=== PATIENT | male | born 1980 | race Caucasian/White ===

== ENCOUNTER 2018-02-28 10:22 | Emergency (ER) | payer OTHER ==
[2018-02-28 10:27] VITALS: BP 132/77
--- NOTE | 2018-02-28 11:44 | ED Physician Documentation ---
PD HPI HEENT - Stated complaint Stated Complaint: R EYE PAIN - Chief complaint Chief Complaint: Heent - History obtained from History obtained from: Patient, Family - History of Present Illness Timing - onset: How many weeks ago (1) Timing - duration: Weeks (1) Timing - details: Gradual onset, Still present, Waxing and waning Location: Sinuses, Other (right eye fullness) Associated symptoms: Congestion, Cough. No: Fever Similar symptoms before: Has not had sx before Recently seen: Not recently seen - Additional information Additional information: 37-year-old male with the father of 2 children and who have been sick has become concerned about the possibility of pinkeye as his daughter is had some drainage from her right eye. He feels that there is some slight fullness to the right eye he does not have pain and he does not have drainage. He has had a bit of a cough and his daughters had a cough on and off for the past 5 months. Review of Systems Constitutional: denies: Fever Eyes: reports: Irritation. denies: Decreased vision Ears: denies: Ear pain Nose: reports: Rhinorrhea / runny nose, Congestion Throat: denies: Sore throat Cardiac: denies: Chest pain / pressure, Palpitations Respiratory: reports: Cough. denies: Dyspnea GI: denies: Vomiting PD PAST MEDICAL HISTORY - Past Medical History Past Medical History: No - Past Surgical History Past Surgical History: Yes General: Hiatal hernia repair HEENT: Tonsil/Adenoidectomy - Present Medications Home Medications: Ambulatory Orders Medication Instructions Recorded Confirmed Azithromycin [Zithromax] 250 mg PO DAILY #6 tablet 02/28/18 - Allergies Allergies/Adverse Reactions: Allergies Allergy/AdvReac Type Severity Reaction Status Date / Time No Known Drug Allergies Allergy Verified 02/28/18 10:27 - Social History Does the pt smoke?: Yes Smoking Status: Current every day smoker Does the pt drink ETOH?: Yes ETOH Use: Wine, Beer, Liquor Does the pt have substance abuse?: No - Immunizations Immunizations are current?: Yes - POLST Patient has POLST: No PD ED PE NORMAL - Vitals Vital signs reviewed: Yes (normal ) - General General: Alert and oriented X 3, No acute distress, Well developed/nourished - HEENT HEENT: Atraumatic, PERRL, EOMI, Other (There is inflamation and disortion of the landmarks on the left TM. The right is clear. The conjunctiva are without inflamation or injection .) - Neck Neck: Supple, no meningeal sign, No bony TTP - Cardiac Cardiac: RRR, No murmur - Respiratory Respiratory: No respiratory distress, Clear bilaterally - Derm Derm: Normal color, Warm and dry, No rash - Extremities Extremities: No deformity, No edema - Neuro Neuro: No motor deficit, No sensory deficit Eye Opening: Spontaneous Motor: Obeys Commands Verbal: Oriented GCS Score: 15 - Psych Psych: Normal mood, Normal affect Results - Vitals Vitals: Vital Signs - 24 hr 02/28/18 10:24 Temperature 36.8 C Heart Rate 99 Respiratory 16 Rate Blood Pressure 132/77 H O2 Saturation 97 Oxygen O2 Source Room air PD MEDICAL DECISION MAKING - ED course Complexity details: considered differential, d/w patient ED course: 37-year-old male exposed to 2 children with otitis has otitis on exam today. He is in favor of treatment despite his relatively mild symptoms per he is administered dexamethasone 10 mg orally and we will place him on some azithromycin like his other 2 children. Departure - Departure Disposition: 01 Home, Self Care Clinical Impression: Otitis media Qualifiers: Otitis media type: suppurative Chronicity: acute Laterality: left Recurrence: not specified as recurrent Spontaneous tympanic membrane rupture: without spontaneous rupture Qualified Code(s): H66.002 - Acute suppurative otitis media without spontaneous rupture of ear drum, left ear Condition: Stable Instructions: ED Otitis Media Acute Adult Follow-Up: [facility] [Provider Group] Prescriptions: Azithromycin [Zithromax] 250 mg PO DAILY #6 tablet
== END 2018-02-28 11:49 | disposition home or self-care (01) ==
LOC: ED 10:22
DX: H66.002 Acute suppurative otitis media without spontaneous rupture of ear drum, left ear (principal); F17.200 Nicotine dependence, unspecified, uncomplicated
CPT/HCPCS: 99283

== ENCOUNTER 2018-12-03 11:35 | Inpatient (IN) | payer OTHER ==
--- NOTE | 2018-12-03 12:18 | XRAY Report ---
Reason: cp Procedure Date: 12/03/2018 Accession Number: [id number] / [id number] Procedure: XR - Chest 1 View X-Ray CPT Code: 59657 FULL RESULT: EXAM: CHEST RADIOGRAPHY EXAM DATE: 12/03/2018 12:11 PM. CLINICAL HISTORY: Chest pain. COMPARISON: None. TECHNIQUE: 1 view. FINDINGS: Lungs/Pleura: No focal opacities evident. No pleural effusion. No pneumothorax. Mediastinum: Within exam limitations, the cardiomediastinal contour is normal. Other: Nonacute left seventh rib fracture, with callus formation but apparently not united. 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 Correlate to point tenderness. RADIA
[2018-12-03 12:23] LABS: BASOPHILS % (AUTO) 0.3 %; EOSINOPHILS % (AUTO) 0.5 %; HGB - HEMOGLOBIN 15.6 g/dL (14.0-18.0); LYMPHOCYTES # (AUTO) 1.4 10^3/uL (1.5-3.5); LYMPHOCYTES % (AUTO) 22.9 %; MEAN CORPUSCULAR HEMOGLOBIN 31.7 pg (27.0-31.0); MEAN CORPUSCULAR HGB CONC 34.5 g/dL (32.0-36.0); MEAN CORPUSCULAR VOLUME 92.1 fL (80.0-94.0); MEAN PLATELET VOLUME 7.1 fL (7.4-11.4); MONOCYTES # (AUTO) 0.5 10^3/uL (0.0-1.0); MONOCYTES % (AUTO) 8.6 %; NEUTROPHILS # (AUTO) 4.1 10^3/uL (1.5-6.6); NEUTROPHILS % (AUTO) 67.7 %; PLT - PLATELET COUNT 260 10^3/uL (130-450); RED BLOOD COUNT 4.93 10^6/uL (4.70-6.10); RED CELL DISTRIBUTION WIDTH 12.7 % (12.0-15.0); WHITE BLOOD COUNT 6.1 x10^3/uL (4.8-10.8)
[2018-12-03 12:34] LABS: ALBUMIN 4.6 g/dL (3.2-5.5); ALBUMIN/GLOBULIN RATIO 1.4 (1.0-2.2); BILIRUBIN,TOTAL 0.9 mg/dL (0.2-1.0); CALCIUM 9.1 mg/dL (8.5-10.3); CREATININE 0.9 mg/dL (0.6-1.2); TOTAL PROTEIN 7.9 g/dL (6.7-8.2)
[2018-12-03] MEDS ORDERED: MAG HYDROX/AL HYDROX/SIMETH 30 ML UDC PO STA (13:43)
[2018-12-03] MEDS ORDERED: LIDOCAINE VISCOUS 2% 15 ML UDC MM STA (13:43)
--- NOTE | 2018-12-03 13:47 | ED Physician Documentation ---
PD HPI CHEST PAIN - Stated complaint Stated Complaint: CP/LT ARM PX/LT EAR PX - Chief complaint Chief Complaint: Cardiac - History obtained from History obtained from: Patient - History of Present Illness Timing - onset: How many hours ago (4) Timing - onset during: Light activity (sitting in classroom) Timing - details: Abrupt onset Pain level max: 8 Pain level now: 4 Quality: Sharp Location: Substernal Radiation: Left upper extremity, Other (left ear) Similar symptoms before: Has not had sx before - Additional information Additional information: The patient is a an otherwise healthy 38-year-old male who presents with substernal chest pain radiating to his left ear and left elbow. He describes it as a "knot in my chest." The pain started suddenly when he was sitting in a classroom about 4 hours prior to arrival. It was severe for about 1-2 minutes, rated at 8 out of 10 in severity. It spontaneously diminished to about 4 out of 10 in severity, where it has remained since that time. He states the pain in his left ear and his left elbow are more severe than the pain in his substernal chest. He denies any associated shortness of breath, diaphoresis, nausea or vomiting. He has no history of similar symptoms in the past. Cardiac risk factors are negative for diabetes, hypertension, hyperlipidemia, or family history of early [place]. He does not smoke cigarettes, but he does vape nicotine. Review of Systems Constitutional: denies: Fever, Fatigue Ears: reports: Ear pain (left). denies: Tinnitus/ringing Nose: denies: Congestion Throat: denies: Sore throat Cardiac: reports: Chest pain / pressure. denies: Palpitations Respiratory: denies: Dyspnea, Cough GI: denies: Abdominal Pain, Nausea, Vomiting : denies: Dysuria Skin: denies: Rash Musculoskeletal: reports: Extremity pain (left elbow). denies: Extremity swelling Neurologic: denies: Focal weakness, Numbness PD PAST MEDICAL HISTORY - Past Medical History Past Medical History: No Cardiovascular: None Respiratory: None Neuro: None Endocrine/Autoimmune: None - Past Surgical History Past Surgical History: Yes General: Hiatal hernia repair HEENT: Tonsil/Adenoidectomy - Present Medications Home Medications: Ambulatory Orders Medication Instructions Recorded Confirmed No Known Home Medications 12/03/18 12/03/18 - Allergies Allergies/Adverse Reactions: Allergies Allergy/AdvReac Type Severity Reaction Status Date / Time No Known Drug Allergies Allergy Verified 12/03/18 11:50 - Social History Does the pt smoke?: Yes Smoking Status: Current every day smoker (vapes nicotine) Does the pt drink ETOH?: Yes Does the pt have substance abuse?: No - Immunizations Immunizations are current?: Yes - POLST Patient has POLST: No PD ED PE NORMAL - Vitals Vital signs reviewed: Yes (hypertensive) - General General: Alert and oriented X 3, Well developed/nourished - HEENT HEENT: Atraumatic, EOMI, Ears normal, Pharynx benign - Neck Neck: Supple, no meningeal sign, No adenopathy, No JVD - Cardiac Cardiac: RRR, No murmur - Respiratory Respiratory: No respiratory distress, Clear bilaterally, Other (No chest wall tenderness to palpation.) - Abdomen Abdomen: Soft, Other (Mild tenderness to palpation in epigastric region, without rebound or guarding.) - Back Back: No CVA TTP - Derm Derm: No rash - Extremities Extremities: No edema, No calf tenderness / cord - Neuro Neuro: Alert and oriented X 3, No motor deficit, No sensory deficit, Normal speech Results - Vitals Vitals: Vital Signs - 24 hr 12/03/18 12/03/18 12/03/18 11:47 12:50 14:47 Temperature 36.3 C L 36.9 C Heart Rate 75 71 75 Heart Rate [ Brachial] Respiratory 14 16 17 Rate Blood Pressure 151/78 H 138/80 H 156/85 H Blood Pressure [Left Brachial artery] Blood Pressure [Right Brachial artery] O2 Saturation 99 98 99 12/03/18 12/03/18 12/03/18 15:10 16:46 18:50 Temperature 36.6 C Heart Rate 71 Heart Rate [ 64 64 Brachial] Respiratory 16 18 Rate Blood Pressure 150/82 H Blood Pressure 138/80 H [Left Brachial artery] Blood Pressure 132/77 H [Right Brachial artery] O2 Saturation 98 97 99 Oxygen O2 Source Nasal cannula - EKG (time done) 11:52 Rate: Rate (enter#) (70) Rhythm: NSR [place]: Normal Intervals: Normal CA QRS: Normal Ischemia: ST elevation c/w repol Computer interpretation: Agree with computer - Labs Labs: Laboratory Tests 12/03/18 12/03/18 12/03/18 12:03 12:19 12:19 WBC 6.1 RBC 4.93 Hgb 15.6 Hct 45.4 MCV 92.1 MCH 31.7 H MCHC 34.5 RDW 12.7 Plt Count 260 MPV 7.1 L Neut # (Auto) 4.1 Lymph # (Auto) 1.4 L [place] # (Auto) 0.5 Eos # (Auto) 0.0 Baso # (Auto) 0.0 Absolute Nucleated RBC 0.00 Nucleated RBC % 0.0 PT 12.0 INR 1.1 Sodium 139 Potassium 4.2 Chloride 102 Carbon Dioxide 28 Anion Gap 9.0 BUN 12 Creatinine 0.9 Estimated GFR (MDRD) 95 Glucose 95 Calcium 9.1 Magnesium Total Bilirubin 0.9 AST 25 ALT 24 Alkaline Phosphatase 78 Troponin I Total Protein 7.9 Albumin 4.6 Globulin 3.3 Albumin/Globulin Ratio 1.4 Lipase 26 12/03/18 12/03/18 12/03/18 12:19 17:59 17:59 WBC RBC Hgb Hct MCV MCH MCHC RDW Plt Count MPV Neut # (Auto) Lymph # (Auto) [place] # (Auto) Eos # (Auto) Baso # (Auto) Absolute Nucleated RBC Nucleated RBC % PT INR Sodium Potassium 3.6 Chloride Carbon Dioxide Anion Gap BUN Creatinine Estimated GFR (MDRD) Glucose Calcium Magnesium 2.3 Total Bilirubin AST ALT Alkaline Phosphatase Troponin I 0.06 0.70 H* Total Protein Albumin Globulin Albumin/Globulin Ratio Lipase - Rads (name of study) 1-view CXR Radiology: Prelim report reviewed, EMP read contemporaneously, See rad report (Subacute to chronic nonunited/healing left rib fracture, posteriorly. Otherwise normal chest radiography.) PD MEDICAL DECISION MAKING - ED course Complexity details: reviewed results, re-evaluated patient, considered differential, d/w patient, d/w family, d/w sales consultant ED course: Patient's presentation is significant for chest pain, with the possibility of cardiac ischemia. Further workup is clinically indicated. In addition the possibility of aortic dissection is considered, and a CT angio of the chest is currently being performed. Chest x-ray does not reveal evidence of acute pulmonary etiology, and I doubt pulmonary embolus. His EKG reveals slight precordial ST elevation, likely early repolarization pattern. Initial troponin is within normal range, at 0.06. Treatment in the emergency department included administration of GI cocktail, which did not relieve his symptoms. 4 baby aspirin and 1 sublingual nitroglycerin was administered, and the patient got good relief of not only his chest pain but also the left elbow and ear discomfort. 1 inch of Nitropaste is being applied topically. I discussed his condition with Dr. Frias, who accepts him for further evaluation and treatment. Departure - Departure Disposition: ED Place in Observation Clinical Impression: Chest pain Qualifiers: Chest pain type: unspecified Qualified Code(s): R07.9 - Chest pain, unspecified Condition: Stable Discharge Date/Time: 12/03/18 16:43
[2018-12-03] MEDS ORDERED: ASPIRIN CHEW 81 MG TABLET PO STA (14:54)
[2018-12-03] MEDS ORDERED: NITROGLYCERIN SL 0.4 MG TABLET SL STA ×2 (14:54→16:12)
[2018-12-03] MEDS ORDERED: NITROGLYCERIN 2% PASTE TOP STA (15:55)
[2018-12-03] MEDS ORDERED: IOVERSOL 320 100 ML VIAL IVP ONE ×2 (16:02→16:26)
[2018-12-03] MEDS ORDERED: SODIUM CHLORIDE FLUSH 0.9% 10 ML SYRINGE IVP PRN (16:08)
[2018-12-03] MEDS: SODIUM CHLORIDE FLUSH 0.9% 10 ML SYRINGE IVP SCH (17:21)
--- NOTE | 2018-12-03 17:21 | CT Report ---
Reason: chest pain, ? aortic dissection Procedure Date: 12/03/2018 Accession Number: [id number] / [id number] Procedure: CT - ANGIO CHEST W/WO CPT Code: FULL RESULT: EXAM: CTA CHEST EXAM DATE: 12/03/2018 04:23 PM. CLINICAL HISTORY: Chest pain, question of aortic dissection. COMPARISON: Chest x-ray from 12/03/2018. TECHNIQUE: Prior to and following intravenous administration of 80 cc of Optiray 320, multiplanar 3D/MIP reconstruction of the thoracic aorta was performed. In accordance with CT protocol optimization, one or more of the following dose reduction techniques were utilized for this exam: automated exposure control, adjustment of mA and/or KV based on patient size, or use of iterative reconstructive technique. FINDINGS: Vascular Structures: Unenhanced images are without evidence for intramural or mediastinal hematoma. Coronary artery calcified plaque. Postcontrast adequate enhancement of the thoracic aorta. No dissection or aneurysm. No evidence of pulmonary embolus. Lungs/Pleura: No endobronchial obstruction. No consolidation. Minimal subpleural atelectasis. Along the medial right fissure is a 5 mm nodule (image 82, series 6). Left major fissure 4 mm nodular opacity (image 69, series 6). Right lower lobe 2.5 mm nodule (image 82, series 6). Mediastinum: Heart size is normal. No mediastinal hematoma. No enlarged mediastinal or hilar lymph nodes. Visualized thyroid gland is unremarkable. Upper Abdomen: Unremarkable. Other: Minimal degenerative changes of the thoracic spine. No acute osseous abnormalities. IMPRESSION: 1. No evidence of thoracic aortic aneurysm or dissection. 2. No evidence of pulmonary embolus. 3. No acute osseous abnormalities. 4. No acute consolidation. 5. Bilateral lung nodules, the largest along the right fissure measuring 5 mm. See recommendations below. 6. Coronary artery atherosclerosis. Recommend follow-up of the described nodule(s) according to the following guidelines: Fleischner Society Recommendations 2017 MacMahon et al. Radiology 2017 Solid Nodules-Low Risk Patients: <6 mm (single or multiple) - No routine follow-up* 6-8 mm (single) -CT at 6-12 months, then consider CT at 18-24 months 6-8mm (multiple) -CT at 3-6 months, then consider at CT 18-24 months >8 mm (single) -Consider CT, PET/CT, or tissue sampling at 3 months >8 mm (multiple) -CT at 3-6 months, then consider CT at 18-24 months Solid Nodules-High Risk Patients: <6 mm (single or multiple) -Optional CT at 12 months* 6-8 mm (single) -CT at 6-12 months, then CT at 18-24 months 6-8mm (multiple) -CT at 3-6 months, then CT at 18-24 months >8 mm (single) -Consider CT, PET/CT, or tissue sampling at 3 months >8 mm (multiple) -CT at 3-6 months, then at 18-24 months *Nodules < 6mm do not require routine follow-up, but suspicious nodule morphology, upper lobe location, or both may warrant 12 month follow-up Subsolid nodules: <6 mm (single, GG or part solid) -No routine follow-up >=6 mm (single GG) -CT at 6-12 months to confirm, then CT q2 years until 5 years >=6 mm (single part solid) -CT at 3-6 months to confirm, if unchanged and solid <6mm, annual CT for 5 years <6 mm (multiple GG or part solid) -CT at 3-6 months. If stable, consider CT at 2 and 4 years >=6 mm (multiple GG or part solid) -CT at 3-6 months. Subsequent management based on most suspicious nodule(s). Consider follow-up at 2 and 4 years for certain suspicious nodules <6mm. If solid component develops or growth, consider resection. RADIA
[2018-12-03] MEDS: ACETAMINOPHEN 325 MG TABLET PO PRN (18:47)
[2018-12-03] MEDS ORDERED: ATORVASTATIN 40 MG TABLET PO SCH (19:13)
[2018-12-03] MEDS ORDERED: CLOPIDOGREL 300 MG TABLET PO SCH (19:18)
[2018-12-03 19:32] LABS: INR 1.1 (0.8-1.2)
[2018-12-03] MEDS: METOPROLOL TARTRATE 25 MG TABLET PO SCH ×2 (19:41→21:12)
[2018-12-03 19:47] LABS: MAGNESIUM 2.3 mg/dL (1.7-2.8)
[2018-12-03] MEDS ORDERED: ENOXAPARIN 100 MG/ML SYRINGE SUBQ SCH (20:00)
[2018-12-03] MEDS ORDERED: SODIUM CHLORIDE 0.9% 1,000 ML IV SCH (20:00)
--- NOTE | 2018-12-03 20:39 | HISTORY & PHYSICAL EXAMINATION ---
DATE OF SERVICE: 12/03/2018 Physician: Radha Frias MD HISTORY OF PRESENT ILLNESS: This is a 38-year-old white male who moved from [facility] to the [place] at the age of 19. He is a PPD converter and remembers being on INH and probably Rifampin for several months and had an entire course of treatment with normal liver function tests, he reports. He has had tonsillectomy, but otherwise has a negative past medical history. 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 Over the previous two days, he was helping someone build a house and remembers carrying drywall up some stairs, which is more exertion than normal for him. Also, at work, he required pulling a heavy object on a carter for a greater distance than he usually does. The patient has had a URI over the previous several weeks, but no fever or cough or shortness of breath. Today when he was in a classroom setting, sitting, he developed sudden onset of left anterior chest pain with radiation to the left earlobe and left elbow, which he rated an 8/10 and this was associated with "skipped beats" that he knew by palpating his carotid artery. There was no shortness of breath, diaphoresis, nausea or syncope. The symptoms waxed and waned and occurred multiple times, but never went away completely and therefore he presented to the emergency room. In the ER, he had an EKG when he had 2/10 chest pain. He was given Lidocaine oral liquid and that had no effect. He had another episode of worsened pain and he was given a sublingual nitroglycerin and aspirin, and had complete relief of the symptoms. Previously, The patient denies any history of early heart disease in the family, does not know what his cholesterol is, and has no history of diabetes or hypertension. MEDICATIONS: None. ALLERGIES: NONE. FAMILY HISTORY: Cancer in two grandfathers, otherwise negative. SOCIAL HISTORY: The patient used to smoke, quit two years ago and does nicotine vaping. He lives with his and two children, who are 4 and 1 year old. REVIEW OF SYSTEMS: A comprehensive review of systems was performed. The pertinent positives are listed, the rest are negative. PHYSICAL EXAMINATION GENERAL: White male, who is in no distress. VITAL SIGNS: Blood pressure 130-150/70-80, heart rate in the mid 70s in sinus rhythm and as I was examining him, he had a 4-beat run of monomorphic ventricular tachycardia, room air saturation 99%, afebrile. HEENT: Unremarkable. NECK: Without JVD or carotid bruits. LUNGS: Clear. HEART: Sounds normal. No murmur. No rub or gallop. ABDOMEN: Soft, nontender. Normal bowel sounds. EXTREMITIES: No clubbing, cyanosis, or edema. NEUROLOGIC: Normal. LABORATORY DATA: Normal electrolytes. Normal BUN and creatinine. Normal liver test. Normal CBC. The first troponin is 0.06. The second troponin just came back and is increasing at 0.70. EKG shows normal sinus rhythm and early repolarization, but possibly peaked T waves in the anterolateral leads. There is no old EKG available for comparison. A second EKG, just done, shows new T wave inversion in lead III. Telemetry: Sinus rhythm and a 4-beat run of monomorphic VTach was seen. IMAGING: Chest x-ray: no active pulmonary disease, normal cardiac size. CTA of his chest: no pulmonary emboli, no thoracic aortic aneurysm or dissection, but there is coronary atherosclerosis seen. DIAGNOSES: 1. Acute [id number] myocardial infarction. His coronary risk factors are male gender, unknown cholesterol status and smoking/nicotine use. 2. Atherosclerosis of the coronary arteries. Despite his young age, this is already seen on CT imaging of the chest. 3. Abnormal EKG 4. VTach. 5. Nicotine vaper user PLAN: The patient was initially to be admitted to Observation status for rule out protocol and potential stress test if everything is negative, but we will now be admitted to full Inpatient status on telemetry, started on daily baby daily aspirin, he already got four baby aspirin in the emergency room. Plavix loading dose of 300 mg will be given. He will be put on nitro paste and have prn sublingual nitroglycerin ordered. Start beta rod, start Lipitor at maximum dose and anticoagulation with Lovenox therapeutic dosing will be started. Oxygen prn. Obtain a followup morning EKG. Obtain an Echo to evaluate for wall motion abnormalities. Obtain fasting lipid level in the morning. Continue to cycle troponins until the peak is seen and it starts to reverse. The patient will need transfer for coronary angiogram. The procedure was discussed with the patient and he is agreeable. CODE STATUS: FULL CODE. DEEP VENOUS THROMBOSIS PROPHYLAXIS: SCDs. ATTESTATION: The patient is expected to be discharged or transferred to another facility within 96 hours: Yes. TD: 12/03/2018 19:09 MTDD
[2018-12-03] MEDS ORDERED: FAMOTIDINE 20 MG TABLET PO SCH (21:00)
[2018-12-04] MEDS ORDERED: NITROGLYCERIN 2% PASTE TOP SCH
[2018-12-04 00:11] VITALS: BP 122/60
[2018-12-04] MEDS: ACETAMINOPHEN 325 MG TABLET PO PRN (00:45)
[2018-12-04] MEDS: SODIUM CHLORIDE FLUSH 0.9% 10 ML SYRINGE IVP SCH (01:01)
--- NOTE | 2018-12-04 03:36 | DISCHARGE TRANSFER SUMMARY ---
Transfer Summary Admit Date: 12/03/18 Transfer Date: 12/04/18 Discharging Provider: Elvia Douglasu Code Status: Attempt Resuscitation Condition at Discharge: Stable Discharge Disposition: 02 Transfer Acute Care Hosp Discharge Facility Name: [facility] Transfer to Location: [facility] - DIAGNOSES Admission Diagnoses: Acute NSTEMI Discharge Diagnoses with Status of Each Condition: Acute NSTEMI with persistently rising troponin level - HPI History of Present Illness: Patient is a 38 y/o male who moved from [facility] to the at age of 19. 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 He developed left anterior chest pain today will seated in a classroom with radiation to left earlobe and left jaw. He rated it 8/10 and associated with skipped heart beats felt by palpitating his carotid artery. There was no SOB, syncope, diaphoresis or nausea. Symptoms waxed and waned and occurred multiple times but never wet away completely so he presented to the ED. He had an EKG done and was about to be discharged when it happened again. He was given sublingual nitroglycerin and aspirin and had complete relief of his sympto ms. He denied family history of cardiac disease. Does not know what his cholesterol is and has no history of diabetes or hypertension. - HOSPITAL COURSE Hospital Course: Patient admitted. Received 90 units of lovenox, nitro paste, metoprolol 12.5mg bid Around 8 pm I was notified of 5/10 substernal chest pain. Repeat EKG was no change from previous. Chest pain subsided shortly afterwards. No more nitroglycerin and no morphine given 3rd set of troponin came back at 1.51 As a result the poker in and the hospitalist national sales director at [facility] wer contacted and the case was presented to them They accepted transfer for further work up and intervention. - ALLERGIES Allergies/Adverse Reactions: Allergies Allergy/AdvReac Type Severity Reaction Status Date / Time No Known Drug Allergies Allergy Verified 12/03/18 11:50 - MEDICATIONS Home Medications: Ambulatory Orders Medication Instructions Recorded Confirmed No Known Home Medications 12/03/18 12/03/18 - PHYSICAL EXAM AT DISCHARGE General Appearance: positive: No acute distress Eyes Bilateral: positive: Normal inspection, PERRL, EOMI ENT: positive: ENT inspection nml, Pharynx nml Neck: positive: Nml inspection, Thyroid nml, No JVD Respiratory: positive: Chest non-tender, No respiratory distress, Breath sounds nml. negative: Wheezes, Rales, Rhonchi Cardiovascular: positive: Regular rate & rhythm, No murmur Abdomen: positive: Non-tender, No organomegaly, Nml bowel sounds, No distention, Tenderness. negative: Guarding, Rebound Back: positive: Nml inspection Skin: positive: Color nml, No rash, Warm, Dry Extremities: positive: Non-tender, Nml appearance. negative: Pedal edema Neurologic/Psychiatric: positive: Oriented x3 - LABS Result Diagrams: 12/03/18 12:19 12/03/18 17:59 - DIAGNOSTIC IMAGING Diagnostic Imaging Results: Final report reviewed - FOLLOW UP Follow Up: With ypu PCP and poker in within 7-[address] from [facility] - TIME SPENT Time Spent in Discharge (Minutes): 45
[2018-12-04] MEDS ORDERED: ENOXAPARIN 40 MG/0.4 ML SYRINGE SUBQ SCH (09:00)
[2018-12-04] MEDS ORDERED: POLYETHYLENE GLYCOL 3350 17 GM PACKET PO SCH (09:00)
[2018-12-04] MEDS ORDERED: ASPIRIN EC 81 MG TABLET PO SCH (09:00)
== END 2018-12-04 02:37 | disposition short-term general hospital (02) | DRG 281 ==
LOC: ED 11:35 → OBS 16:08 → OBSVTOIN 19:13 → MS2 20:18
PROVIDERS: ADMIT Internal Medicine; ATTEND Internal Medicine
DX: I21.4 Non-ST elevation (NSTEMI) myocardial infarction (principal); I47.2 Ventricular tachycardia; I25.10 Atherosclerotic heart disease of native coronary artery without angina pectoris; F17.290 Nicotine dependence, other tobacco product, uncomplicated
CPT/HCPCS: 36415; 71045; 71275; 80053; 83690; 83735; 84132; 84484; 85025; 85610; 93005; 96372; 99284; A9270; G0378; J1650; Q9967; 80048; 80061; 83721; 99283

== ENCOUNTER 2018-12-04 02:37 | Outpatient (CLI) | payer OTHER | END 2018-12-04 02:38 | disposition short-term general hospital (02) | LOC: EMS 02:37 | PROVIDERS: ATTEND Surgery | DX: I21.4 Non-ST elevation (NSTEMI) myocardial infarction (principal) | CPT/HCPCS: A0425; A0426 ==

== ENCOUNTER 2019-01-05 08:37 | Outpatient (CLI) | payer OTHER ==
[2019-01-05 08:46] LABS: BASOPHILS % (AUTO) 0.3 %; EOSINOPHILS # (AUTO) 0.1 10^3/uL (0.0-0.7); EOSINOPHILS % (AUTO) 0.9 %; LYMPHOCYTES # (AUTO) 1.3 10^3/uL (1.5-3.5); LYMPHOCYTES % (AUTO) 23.4 %; MEAN CORPUSCULAR HEMOGLOBIN 31.9 pg (27.0-31.0); MEAN CORPUSCULAR HGB CONC 34.6 g/dL (32.0-36.0); MEAN CORPUSCULAR VOLUME 92.2 fL (80.0-94.0); MEAN PLATELET VOLUME 7.3 fL (7.4-11.4); MONOCYTES # (AUTO) 0.5 10^3/uL (0.0-1.0); MONOCYTES % (AUTO) 9.6 %; NEUTROPHILS # (AUTO) 3.6 10^3/uL (1.5-6.6); NEUTROPHILS % (AUTO) 65.8 %; PLT - PLATELET COUNT 239 10^3/uL (130-450); RED BLOOD COUNT 4.71 10^6/uL (4.70-6.10); WHITE BLOOD COUNT 5.4 x10^3/uL (4.8-10.8)
[2019-01-05 09:08] LABS: ALBUMIN 4.3 g/dL (3.2-5.5); ALBUMIN/GLOBULIN RATIO 1.5 (1.0-2.2); ALKALINE PHOSPHATASE 76 IU/L (42-121); ALT ALANINE AMINOTRANSFERASE 34 IU/L (10-60); AST ASPARTATE AMINOTRANSFERASE 31 IU/L (10-42); BUN - BLOOD UREA NITROGEN 13 mg/dL (6-20); CALCIUM 9.2 mg/dL (8.5-10.3); CARBON DIOXIDE - CO2 24 mmol/L (21-32); CHLORIDE 103 mmol/L (101-111); CHOL/HDL RATIO 2.9 (<5.0); CHOLESTEROL 111 mg/dL; CREATININE 0.9 mg/dL (0.6-1.2); GFR - MDRD 95 (>89); GLUCOSE 101 mg/dL (70-100); HDL CHOLESTEROL 38 mg/dL; LDL CHOLESTEROL,CALCULATED 62 mg/dL; LDL/HDL RATIO 1.6 (<3.6); SODIUM 138 mmol/L (135-145); TOTAL PROTEIN 7.2 g/dL (6.7-8.2); VLDL CHOLESTEROL 11 mg/dL
== END 2019-01-05 08:38 | disposition home or self-care (01) ==
LOC: LAB 08:37
PROVIDERS: ATTEND Physician Assistant
DX: I25.10 Atherosclerotic heart disease of native coronary artery without angina pectoris (principal)
CPT/HCPCS: 36415; 80053; 80061; 83721; 85025